=== PATIENT | female | born 1950 | race Caucasian/White ===

== ENCOUNTER 2020-05-20 13:57 | Outpatient (RCR) | payer MEDICARE, OTHER, SELFPAY | END 2020-06-26 13:04 | disposition home or self-care (01) | LOC: HO.WCC 13:57 | PROVIDERS: PCP Internal Medicine; Visit Provider Surgery | DX: E11.621 Type 2 diabetes mellitus with foot ulcer (principal); E11.51 Type 2 diabetes mellitus with diabetic peripheral angiopathy without gangrene; L97.512 Non-pressure chronic ulcer of other part of right foot with fat layer exposed; L03.115 Cellulitis of right lower limb; L98.0 Pyogenic granuloma; I10 Essential (primary) hypertension; Z79.4 Long term (current) use of insulin; Z89.421 Acquired absence of other right toe(s); Z79.899 Other long term (current) drug therapy; Z79.2 Long term (current) use of antibiotics | CPT/HCPCS: 11042; 17250; 99212 ==

== ENCOUNTER 2020-07-04 15:29 | Emergency (ER) | payer MEDICARE, OTHER, SELFPAY ==
[2020-07-04 16:37] VITALS: BP 171/61; PULSE 86; RESP 20; TEMP 37.1; O2SAT 98; BMI 35.3
--- NOTE | 2020-07-04 17:08 | CT_ITS ---
EXAMINATION: CT ABDOMEN AND PELVIS WITHOUT CONTRAST CLINICAL INFORMATION: Lower abdominal pain COMPARISON: None TECHNIQUE: Multidetector volumetric imaging was performed from the superior aspect of the liver through the pubic symphysis. Sagittal and coronal reformatted images were obtained on the technologist's workstation. This CT examination was performed using dose optimization techniques as appropriate, variously including the following: *Automated exposure control *Adjustment of mA and/or kV according to patient size (this includes techniques or standardized protocols for targeted exams where dose is matched to indication/reason for exam; i.e. extremities or head) *Use of iterative reconstruction technique DLP: 777 mGy-cm FINDINGS: LUNG BASES: The visualized lung bases are unremarkable. LIVER, GALLBLADDER, AND BILIARY TREE: Vague hypodense lesion at the dome right lobe of liver measuring 6 mm axial image 59 series 5. In a patient without history of malignancy no further imaging would be suggested. No intrahepatic bile duct dilatation. The right lobe of liver measures 20 cm superior inferior. Status post cholecystectomy. No bile duct dilatation. CBD measures 5 mm. PANCREAS: Unremarkable. SPLEEN: Unremarkable. ADRENAL GLANDS: Unremarkable. KIDNEYS AND URETERS: The kidneys are normal in size, shape, and attenuation. No hydronephrosis, hydroureter, or calculi seen. No perinephric stranding. BLADDER: Unremarkable. GASTROINTESTINAL TRACT: There are innumerable diverticula of the sigmoid colon. There are scattered diverticula in the remainder the colon but most are present in the left colon. Small area of pericolonic edema at the mid sigmoid colon consistent with a mild diverticulitis, coronal image 67 series 5. No perforation or abscess. No bowel obstruction. There is a moderate volume of stool in the colon. The appendix is normal . The small bowel loops are unremarkable. The stomach is normal. There is small hiatal hernia. ABDOMINAL WALL: Small fat-containing right-sided hernia. Defect in the wall measures 1.7 cm. The herniated fat pocket measures 3.8 x 0.8 x 3 cm. This lies at the cephalad margin of the mid abdominal wall surgical incision which is otherwise intact. There is edema in the subcutaneous tissues around the surgical incision but there is no abscess or focal fluid collection. LYMPH NODES: Normal. VASCULAR: Scattered vascular wall calcifications in the abdomen and pelvis. There is no aneurysm of aorta. PELVIC VISCERA: Status post hysterectomy. No pelvic mass or fluid collection. OSSEOUS STRUCTURES: Multilevel degenerative spondylosis of the spine. CT/CT abdomen pelvis wo con IMPRESSION: 1. Status post hysterectomy. 2. Status post Cholecystectomy.. 3. Midline abdominal incision has a focal fat hernia at the cephalad margin of the incision. The incision is otherwise intact. There is edema around the incision the subcutaneous tissue but no abscess or fluid collection. 4. There is marked diverticulosis of the colon. Small focus of diverticulitis of the sigmoid colon.
--- NOTE | 2020-07-04 17:21 | ED.ABDPAIN ---
HPI - Abdominal Pain General Chief Complaint: Abdominal Pain Stated Complaint: abdominal pain Time Seen by Provider: 07/04/20 17:08 Source: patient Mode of arrival: ambulatory Limitations: no limitations History of Present Illness HPI narrative: 70-year-old female walked in today for abdominal pain, patient described the pain as crampy lower abdominal pain started since last night, pain was severe when it started rated at 10/10 now with about 510, pain is intermittent, localized to the suprapubic area with no radiation, no aggravating factors or alleviating factors, was associated with difficulty urination but declined nausea, vomiting, or fever. Related Data Home Medications Medication Instructions Recorded Confirmed Prilosec 07/04/20 Synthroid 07/04/20 07/04/20 lorazepam 07/04/20 metformin 07/04/20 Previous Rx's Medication Instructions Recorded ciprofloxacin HCl [Cipro] 500 mg PO Q12H #14 tab 07/04/20 metronidazole [Flagyl] 500 mg PO Q12H #14 tab 07/04/20 Allergies Allergy/AdvReac Type Severity Reaction Status Date / Time cefaclor [From CECLOR] Allergy Unknown UNKNOWN Unverified 05/01/20 15:14 erythromycin base Allergy Unknown UNKNOWN Unverified 05/01/20 15:14 [ERYTHROMYCIN BASE] sulfamethoxazole Allergy Unknown UNKNOWN Unverified 05/01/20 15:14 [From BACTRIM] trimethoprim [From BACTRIM] Allergy Unknown UNKNOWN Unverified 05/01/20 15:14 Review of Systems Review of Systems All other systems are reviewed and are negative Constitutional: Reports as per HPI and Reports no additional constitutional complaints Eyes: Reports as per HPI and Reports no additional eye complaints Reports system reviewed and no additional complaints, except as documented Cardiovascular: Reports as per HPI and Reports no additional cardiovascular complaints Respiratory: Reports as per HPI and Reports no additional respiratory complaints Gastrointestinal: Reports as per HPI and Reports no additional gastrointestinal complaints Genitourinary: Reports no additional female genitourinary complaints Musculoskeletal: Reports no additional musculoskeletal complaints Skin/Breast: Reports system reviewed and no additional complaints, except as docu Psychiatric: Reports no additional psychiatric complaints Endocrine: Reports no additional endocrine complaints Hematologic/Lymphatic: Reports no additional hematologic/lymphatic complaints Allergic/Immunologic: Reports no additional allergic/immunologic complaints Reports system reviewed and no additional complaints, except as documented and Reports Abnormal speech present Physical Exam Vital Signs: Vital Signs: Last Vital Signs Temp 98.7 F 07/04/20 16:37 Pulse 86 07/04/20 16:37 Resp 20 07/04/20 16:37 BP 171/61 H 07/04/20 16:37 Pulse Ox 98 07/04/20 16:37 Body Mass Index 35.3 Vital signs have been reviewed as normal and appeared to be correct. Blood pressure in the high range. Heart rate normal. Respiration rate normal. Temperature normal. Oxygen saturation normal. Appearance: Alert. Oriented X3. No acute distress. Head: Normal external exam. Normocephalic. Atraumatic. No Parra signs noted. No raccoon eyes noted Eyes: PERRLA. EOMI. Conjunctiva and sclera normal. Eyelids normal. ENT: EAC normal. TM's Normal. Pharynx normal. Uvula midline. Moist mucous membranes. No trismus noted. No drooling noted. No muffled voice noted. Neck: Normal inspection. Neck supple. FROM. No adenopathy. Thyroid Normal. No meningeal signs. No neck mass noted. CVS: Normal heart rate and rhythm. Heart sound normal. No murmurs noted. Pulses normal throughout. Respiratory: No respiratory distress. Painless inspiration. Breath sounds normal. No wheezes/rales/rhonchi noted. Chest nontender. No accessory muscle usage noted or decreased air movement noted. Abdomen: Soft, mild tenderness in the suprapubic area but no rebound no guarding.. Bowel sounds normal in all 4 quadrants. No distention noted. No organomegaly noted. No visible injury noted. Back: No CVA tenderness. Full range of motion noted. Skin: Skin warm and dry. Normal skin color. Normal skin turgor. No rashes/lesions/lacerations noted. Extremities: No lower extremity edema. Extremities exhibit normal range of motion. Extremities nontender. Neuro: Oriented X 3. No motor deficit. No sensory deficit. Reflexes normal. MDM - Abdominal Pain MDM Narrative Medical decision making narrative: Assessment and plan. 70-year-old female came in with crampy suprapubic abdominal pain since last night pain is intermittent, patient now has no pain. CT of the abdomen pelvis is unremarkable except for maybe of focal diverticulitis. Patient has no white count, no fever, abdominal exam is soft. Will treat with Cipro/Flagyl p.o. as an outpatient, patient also was instructed to modify diet and stay away from seeds/not contained food. Mild hypernatremia. Lab Data Attestation: I reviewed the patient's lab results. Result diagrams: 07/04/20 17:36 07/04/20 17:36 Labs: Lab Results 07/04/20 07/04/20 07/04/20 Range/Units 17:36 17:36 17:36 WBC 8.6 (4.8-10.8) X10*3/uL RBC 4.58 (4.20-5.50) X10*6/uL Hgb 12.2 (12.0-16.0) g/dl Hct 36.9 L (37-47) % MCV 80.6 (80-98) fL MCH 26.6 L (27.0-33.0) pg MCHC 33.1 (31.0-35.0) g/dl RDW 13.4 (11.0-16.0) % Plt Count 261 (160-400) X10*3/uL MPV 9.1 L (9.4-12.3) fL Immature Gran % (Auto) 0.3 (0.0-0.4) % Neut % (Auto) 68.8 (45-73) % Lymph % (Auto) 20.8 (20-40) % [place] % (Auto) 7.4 (2-11) % Eos % (Auto) 2.2 (0-4) % Baso % (Auto) 0.5 (0-2) % Lymph # (Auto) 1.8 (1.2-4.9) X10*3/uL [place] # (Auto) 0.6 (0.1-1.2) X10*3/uL Eos # (Auto) 0.2 (0.0-0.4) X10*3/uL Baso # (Auto) 0.0 (0.0-0.2) X10*3/uL Abs Immat Gran (auto) 0.03 (0.00-0.03) X10*3/uL Absolute Neuts (auto) 5.9 (2.0-8.3) X10*3/uL Absolute Nucleated RBC 0.000 (0.0-0.012) X10*3/uL Nucleated RBC % (auto) 0.0 (0.0-0.2) /100WBC Sodium 130 L (135-145) mmol/L Potassium 3.8 (3.3-5.1) mmol/l Chloride 92 L (96-108) mmol/L Carbon Dioxide 28 (22-29) mmol/L Anion Gap 14 (12-20) BUN 7 L (9-16) mg/dL Creatinine 0.71 (0.5-1.4) mg/dL Estim Creat Clear Calc 79.3 Estimated GFR > 60 Random Glucose 231 H (60-115) mg/dL Calcium 9.6 (8.4-10.2) mg/dL Total Bilirubin 0.7 (0.0-1.0) mg/dL Direct Bilirubin 0.2 (0.0-0.5) mg/dL AST 18 (5-31) U/L ALT 20 (0-31) U/L Alkaline Phosphatase 82 (39-117) U/L Total Protein 7.0 (6.5-8.0) g/dL Albumin 4.6 (3.5-5.0) g/dL Lipase 21 (8-78) U/L Urine Color YELLOW Urine Appearance CLEAR Urine pH 6.5 (5.0-8.0) Ur Specific [place] 1.010 (1.005-1.025) Urine Protein NEG (NEG-TRACE) MG/DL Urine Glucose (UA) 100 H (NEG) MG/DL Urine Ketones NEG (NEG) MG/DL Urine Blood NEG (NEG) Urine Nitrite NEG (NEG) Ur Leukocyte Esterase NEG (NEG) Imaging Data CT scan - abdomen: Radiologist's impression: 1. Status post hysterectomy. 2. Status post Cholecystectomy.. 3. Midline abdominal incision has a focal fat hernia at the cephalad margin of the incision. The incision is otherwise intact. There is edema around the incision the subcutaneous tissue but no abscess or fluid collection. 4. There is marked diverticulosis of the colon. Small focus of diverticulitis of the sigmoid colon. Discharge Plan Discharge Clinical Impression: Diverticulitis Abdominal pain Qualifiers: Abdominal location: left lower quadrant Qualified Code(s): R10.32 - Left lower quadrant pain Patient Disposition: Home, Self-Care Instructions: Diverticulitis (ED), Abdominal Pain (ED) Additional Instructions: Talk to your PCP to arrange for your routine colonoscopy. Prescriptions: New ciprofloxacin HCl [Cipro] 500 mg tablet 500 mg PO Q12H Qty: 14 RF: 0 metronidazole [Flagyl] 500 mg tablet 500 mg PO Q12H Qty: 14 RF: 0 No Action Prilosec RF: 0 Synthroid RF: 0 lorazepam RF: 0 metformin RF: 0 Referrals: Niko Miles MD [Primary Care Provider] - 2 days [facility] Past Medical History Medical History Anxiety Diabetes mellitus, type 2 Hypertension Hypothyroidism Social History Social History Alcohol intake: former Smoked in Last 30 Days: No Use of substances other than those prescribed or required for medical reasons: No Advance Directives: No Advance Directives Information Provided: Yes
[2020-07-04 17:41] LABS: MANUAL DIFF FLAG NO
[2020-07-04] MEDS: Ketorolac Tromethamine 15 MG/ML VIAL IVPUSH (17:43)
[2020-07-04 17:44] LABS: Appearance Urine CLEAR; Color Urine YELLOW; Glucose Urine UA 100 MG/DL (NEG); Leukocyte Esterase Urine NEG (NEG); Nitrite Urine NEG (NEG); PH 6.5 (5.0-8.0); Urine Blood NEG (NEG); Urine Ketones NEG (NEG); Urine Protein NEG (NEG-TRACE)
[2020-07-04] MEDS: 0.9 % Sodium Chloride 500 ML 1000 ML IV (17:45)
[2020-07-04 17:47] LABS: Basophils Percent Auto 0.5 % (0-2); Eosinophils Absolute Auto 0.2 X10*3/uL (0.0-0.4); Eosinophils Percent Auto 2.2 % (0-4); Hematocrit 36.9 % (37-47); Hemoglobin 12.2 g/dl (12.0-16.0); Imm Gran Abs Auto 0.03 X10*3/uL (0.00-0.03); Imm Gran Pct Auto 0.3 % (0.0-0.4); Lymphocytes Absolute Auto 1.8 X10*3/uL (1.2-4.9); Lymphocytes Percent Auto 20.8 % (20-40); Mean Corpuscular HGB Conc 33.1 g/dl (31.0-35.0); Mean Corpuscular Hemoglobin 26.6 pg (27.0-33.0); Mean Corpuscular Volume 80.6 fL (80-98); Mean Platelet Volume 9.1 fL (9.4-12.3); Monocytes Absolute Auto 0.6 X10*3/uL (0.1-1.2); Monocytes Percent Auto 7.4 % (2-11); Neutrophils Absolute Auto 5.9 X10*3/uL (2.0-8.3); Neutrophils Percent Auto 68.8 % (45-73); Platelet Count 261 X10*3/uL (160-400); Red Blood Count 4.58 X10*6/uL (4.20-5.50); Red Cell Distribution Width 13.4 % (11.0-16.0); White Blood Count 8.6 X10*3/uL (4.8-10.8)
[2020-07-04 18:14] LABS: Alanine Aminotransferase 20 U/L (0-31); Albumin Level 4.6 g/dL (3.5-5.0); Alkaline Phosphatase 82 U/L (39-117); Anion Gap 14 (12-20); Aspartate Amino Transferase 18 U/L (5-31); Bilirubin Direct 0.2 mg/dL (0.0-0.5); Bilirubin Total 0.7 mg/dL (0.0-1.0); Blood Urea Nitrogen 7 mg/dL (9-16); Calcium 9.6 mg/dL (8.4-10.2); Carbon Dioxide 28 mmol/L (22-29); Chloride 92 mmol/L (96-108); Creatinine Clr Calc Pharmacy 79.3; Estimated Glomerular Filt Rate > 60; Glucose Random 231 mg/dL (60-115); Lipase 21 U/L (8-78); Potassium 3.8 mmol/l (3.3-5.1); Sodium 130 mmol/L (135-145)
== END 2020-07-04 18:51 | disposition home or self-care (01) ==
PROVIDERS: Emergency Provider Emergency Medicine; PCP Internal Medicine
DX: K57.32 Diverticulitis of large intestine without perforation or abscess without bleeding (principal); R10.32 Left lower quadrant pain; Z79.899 Other long term (current) drug therapy
CPT/HCPCS: 36415; 74176; 80048; 80076; 81003; 83690; 85025; 96374; 96375; 99284; J1885

== ENCOUNTER 2020-08-29 14:46 | Outpatient (RCR) | payer MEDICARE, OTHER, SELFPAY | END 2020-09-24 13:25 | disposition home or self-care (01) | LOC: HO.WCC 14:46 | PROVIDERS: Visit Provider Surgery | DX: E11.621 Type 2 diabetes mellitus with foot ulcer (principal); L97.512 Non-pressure chronic ulcer of other part of right foot with fat layer exposed; C55 Malignant neoplasm of uterus, part unspecified; M10.9 Gout, unspecified; I87.2 Venous insufficiency (chronic) (peripheral); I10 Essential (primary) hypertension; K21.9 Gastro-esophageal reflux disease without esophagitis; J45.909 Unspecified asthma, uncomplicated; K81.9 Cholecystitis, unspecified; Z90.711 Acquired absence of uterus with remaining cervical stump; Z89.421 Acquired absence of other right toe(s) | CPT/HCPCS: 11042 ==

== ENCOUNTER 2020-11-08 22:39 | Emergency (ER) | payer MEDICARE, OTHER, SELFPAY ==
--- NOTE | ~2020-11-08 | XR_ITS ---
EXAMINATION: RIGHT FOOT 3 VIEWS CLINICAL INFORMATION: Concern for third digit osteomyelitis. COMPARISON: None. TECHNIQUE: AP, lateral, oblique views of the right foot were obtained. FINDINGS: There is absence of the first distal phalanx as well as the distal aspect of the proximal first phalanx. A threaded screw traversing the distal first metatarsal is intact. There is also absence of the distal phalanx. There are no acute fractures. There is soft tissue swelling to the distal dorsum of the foot. There is diffuse soft tissue swelling about the distal third digit. There are a few punctate flecks of density dorsal to the distal third distal phalanx. This is doubtful to represent bony destruction as it is distant from the cortex. There are no areas of bone destruction suspicious for osteomyelitis. There is no ankle joint effusion. There is a small plantar surface calcaneal spur. XR/XR foot RT min 3V IMPRESSION: Postsurgical changes as stated above. Soft tissue swelling to the distal dorsum of the foot. Diffuse soft tissue swelling to the distal third digit. There are a few soft tissue punctate densities to the distal third digit. It is doubtful that this is medical center representative of acute osseous infection. However, please note that plain films are not necessarily sensitive for osteomyelitis. Consider correlation with MRI if deemed clinically appropriate.
[2020-11-08 22:48] VITALS: BP 137/68; PULSE 80; RESP 16; TEMP 36.7; O2SAT 97; BMI 34.0
--- NOTE | 2020-11-09 00:36 | ED.GENADULT ---
HPI - General Adult General Chief complaint: General Medical Stated complaint: Ankle swelling Time Seen by Provider: 11/08/20 23:38 Source: patient Mode of arrival: ambulatory Limitations: no limitations History of Present Illness HPI narrative: Patient comes emergency room complaining of right foot swelling and redness. Patient states it has been 24 hours since she 1st noticed the swelling and redness on her foot. Patient states that she has limited sensation due to diabetes. Patient denies fever chills, denies injury. 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 Patient reports an old ulcer in the 3rd toe, however she has noticed that she has new discomfort on that toe Related Data Home Medications Medication Instructions Recorded Confirmed Prilosec 07/04/20 Synthroid 07/04/20 07/04/20 lorazepam 07/04/20 metformin 07/04/20 Previous Rx's Medication Instructions Recorded ciprofloxacin HCl [Cipro] 500 mg PO Q12H #14 tab 07/04/20 metronidazole [Flagyl] 500 mg PO Q12H #14 tab 07/04/20 clindamycin HCl 300 mg PO TID 7 Days #21 cap 11/09/20 Allergies Allergy/AdvReac Type Severity Reaction Status Date / Time cefaclor [From CECLOR] Allergy Unknown UNKNOWN Verified 11/08/20 22:47 erythromycin base Allergy Unknown UNKNOWN Verified 11/08/20 22:47 [ERYTHROMYCIN BASE] sulfamethoxazole Allergy Unknown UNKNOWN Verified 11/08/20 22:47 [From BACTRIM] trimethoprim [From BACTRIM] Allergy Unknown UNKNOWN Verified 11/08/20 22:47 Review of Systems Review of Systems: Constitutional : No Weight loss, No Fever, No Chills, No Night Sweats, No Fatigue, No Malaise ENT/Mouth : No Hearing loss, No Ear Pain, No Nasal Congestion, No Sinus Pain, No Hoarseness, No sore throat, No Rhinorrhea, No Swallowing Difficulty Eyes: No Eye Pain, No Swelling, No Redness, No Foreign Body, No Discharge, No Vision Changes Cardiovascular : No Chest Pain, No SOB, No Dyspnea on Exertion, No Orthopnea, No Edema, No Palpitations Respiratory : No Cough, No Sputum, No Wheezing, No Smoke Exposure, No Dyspnea Gastrointestinal : No Nausea, No Vomiting, No Diarrhea, No Constipation, No abdominal Pain, No Hematochezia, No Melena Genitourinary : no irregular bleeding, No Dysuria, No Urinary Frequency, No Hematuria, No Urinary Incontinence, No Urgency, No Flank Pain, No Urinary Flow Changes, No Hesitancy Musculoskeletal : No joint pain, No Myalgias, No Joint Swelling Skin : Complaining of an old ulcer in the 3rd toe, burning sensation, swelling of the right foot and erythema. Neuro : No Weakness, No Numbness, No Paresthesias, No Loss of Consciousness, No Dizziness, No Headache Psych : No Anxiety/Panic, No Depression, No SI/HI/AH/VH, No Social Issues, Heme/Lymph: No Bruising, No Bleeding,No Lymphadenopathy Endocrine : No Polyuria, No Polydipsia, No Temperature Intolerance PMF Past Medical History Medical History Anxiety Diabetes mellitus, type 2 Hypertension Hypothyroidism Social History Social History Alcohol intake: former Advance Directives: No Physical Exam Vital Signs: Vital Signs: Last Vital Signs Temp 98.2 F 11/09/20 02:00 Pulse 81 11/09/20 02:00 Resp 18 11/09/20 02:00 BP 141/60 H 11/09/20 02:00 Pulse Ox 98 11/09/20 02:00 Body Mass Index 34.0 Appearance: Alert. Oriented X3. No acute distress. Eyes: Pupils equal, round and reactive to light. ENT: Pharynx normal. Neck: Normal inspection. Neck supple. No lymph nodes noted. No crepitus CVS: Normal heart rate and rhythm. Pulses normal. Normal S1 and S2 Respiratory: No respiratory distress. Breath sounds normal. No Wheezing. No rales Abdomen: Soft and nontender. No rigidity. No distention. good BS x4 Skin: Skin warm and dry. Old healing ulcer on the plantar aspect of the 3rd toe on the right foot, right toe looks mildly swollen and erythematous expanding to the dorsum of the right foot, +3 pitting edema in the distal aspect of the right foot, increased warmth to the distal aspect of the foot then compared to the proximal aspect of the right foot and the left foot Extremities: No lower extremity edema. No lower extremity edema. No Lacerations. No Rash Neuro: Oriented X 3. No motor deficit. No sensory deficit. Moving all extermities. No slurred speech. Course Course Course Narrative: I discussed the labs and imaging with the patient, at this time, osteomyelitis and sepsis are not suspected. The infection seems to be mostly superficial, no suspicion for gas gangrene. Patient's lactic acid is 2.1. Patient refused to get an IV and IV fluids. Due to patient's multiple allergies, we will go ahead and start clindamycin. 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 First dose of clindamycin given. I discussed with the patient that she can speak to her primary care physician regarding a referral to an six color press operator to get a skin scratch test, to rule out allergies to antibiotics. Patient states that she does not remember the side effects of some of this antibiotics, they might be just side effects rather than actual allergies. At this time, clindamycin will be started, patient has history of MRSA. Medical Decision Making Lab Data Result diagrams: 11/09/20 01:18 11/09/20 01:18 Labs: Lab Results 11/09/20 11/09/20 11/09/20 Range/Units 01:18 01:18 01:18 WBC 6.7 (4.8-10.8) X10*3/uL RBC 4.37 (4.20-5.50) X10*6/uL Hgb 11.9 L (12.0-16.0) g/dl Hct 35.5 L (37-47) % MCV 81.2 (80-98) fL MCH 27.2 (27.0-33.0) pg MCHC 33.5 (31.0-35.0) g/dl RDW 13.2 (11.0-16.0) % Plt Count 168 D (160-400) X10*3/uL MPV 10.4 (9.4-12.3) fL Immature Gran % (Auto) 0.4 (0.0-0.4) % Neut % (Auto) 57.0 (45-73) % Lymph % (Auto) 32.4 (20-40) % [place] % (Auto) 6.8 (2-11) % Eos % (Auto) 2.8 (0-4) % Baso % (Auto) 0.6 (0-2) % Lymph # (Auto) 2.2 (1.2-4.9) X10*3/uL [place] # (Auto) 0.5 (0.1-1.2) X10*3/uL Eos # (Auto) 0.2 (0.0-0.4) X10*3/uL Baso # (Auto) 0.0 (0.0-0.2) X10*3/uL Abs Immat Gran (auto) 0.03 (0.00-0.03) X10*3/uL Absolute Neuts (auto) 3.8 (2.0-8.3) X10*3/uL Absolute Nucleated RBC 0.000 (0.0-0.012) X10*3/uL Nucleated RBC % (auto) 0.0 (0.0-0.2) /100WBC Smear Tech's Comments VERIFIED Sodium 133 L (135-145) mmol/L Potassium 4.5 (3.3-5.1) mmol/L Chloride 98 (96-108) mmol/L Carbon Dioxide 19 L (22-29) mmol/L Anion Gap 21 H (12-20) BUN 10 (9-16) mg/dL Creatinine 0.77 (0.5-1.4) mg/dL Estim Creat Clear Calc 71.7 Estimated GFR > 60 Random Glucose 212 H (60-115) mg/dL Lactic Acid 2.1 H* (0.5-2.0) mmol/L Calcium 9.5 (8.4-10.2) mg/dL Imaging Data Foot x-ray: Radiologist's impression: There is absence of the first distal phalanx as well as the distal aspect of the proximal first phalanx. A threaded screw traversing the distal first metatarsal is intact. There is also absence of the distal phalanx. There are no acute fractures. There is soft tissue swelling to the distal dorsum of the foot. There is diffuse soft tissue swelling about the distal third digit. There are a few punctate flecks of density dorsal to the distal third distal phalanx. This is doubtful to represent bony destruction as it is distant from the cortex. There are no areas of bone destruction suspicious for osteomyelitis. There is no ankle joint effusion. There is a small plantar surface calcaneal spur. XR/XR foot RT min 3V IMPRESSION: Postsurgical changes as stated above. Soft tissue swelling to the distal dorsum of the foot. Diffuse soft tissue swelling to the distal third digit. There are a few soft tissue punctate densities to the distal third digit. It is doubtful that this is outbound call center representative of acute osseous infection. However, please note that plain films are not necessarily sensitive for osteomyelitis. Consider correlation with MRI if deemed clinically appropriate. Discharge Plan Discharge Clinical Impression: Cellulitis Qualifiers: Site of cellulitis: extremity Site of cellulitis of extremity: lower extremity Laterality: right Qualified Code(s): L03.115 - Cellulitis of right lower limb Patient Disposition: Home, Self-Care Instructions: Cellulitis (ED) Additional Instructions: Please follow-up with your primary care physician tomorrow. If you have any worsening or new symptoms, please return to the emergency room or call 911 Prescriptions: New clindamycin HCl 300 mg capsule 300 mg PO TID 7 Days Qty: 21 RF: 0 No Action Prilosec RF: 0 Synthroid RF: 0 lorazepam RF: 0 metformin RF: 0 ciprofloxacin HCl [Cipro] 500 mg tablet 500 mg PO Q12H Qty: 14 RF: 0 metronidazole [Flagyl] 500 mg tablet 500 mg PO Q12H Qty: 14 RF: 0
[2020-11-09 01:47] LABS: Imm Gran Abs Auto 0.03 X10*3/uL (0.00-0.03); Imm Gran Pct Auto 0.4 % (0.0-0.4); MANUAL DIFF FLAG SCAN; Mean Corpuscular HGB Conc 33.5 g/dl (31.0-35.0); PLT CLUMP 1; Red Cell Distribution Width 13.2 % (11.0-16.0); SCAN SMEAR FLAG 1
[2020-11-09 01:49] LABS: Basophils Percent Auto 0.6 % (0-2); Eosinophils Absolute Auto 0.2 X10*3/uL (0.0-0.4); Eosinophils Percent Auto 2.8 % (0-4); Hematocrit 35.5 % (37-47); Hemoglobin 11.9 g/dl (12.0-16.0); Lymphocytes Absolute Auto 2.2 X10*3/uL (1.2-4.9); Lymphocytes Percent Auto 32.4 % (20-40); Mean Corpuscular Hemoglobin 27.2 pg (27.0-33.0); Mean Corpuscular Volume 81.2 fL (80-98); Mean Platelet Volume 10.4 fL (9.4-12.3); Monocytes Absolute Auto 0.5 X10*3/uL (0.1-1.2); Monocytes Percent Auto 6.8 % (2-11); Neutrophils Absolute Auto 3.8 X10*3/uL (2.0-8.3); Platelet Count 168 X10*3/uL (160-400); Red Blood Count 4.37 X10*6/uL (4.20-5.50); White Blood Count 6.7 X10*3/uL (4.8-10.8)
[2020-11-09 01:51] LABS: Anion Gap 21 (12-20); Blood Urea Nitrogen 10 mg/dL (9-16); Calcium 9.5 mg/dL (8.4-10.2); Carbon Dioxide 19 mmol/L (22-29); Chloride 98 mmol/L (96-108); Creatinine Clr Calc Pharmacy 71.7; Estimated Glomerular Filt Rate > 60; Glucose Random 212 mg/dL (60-115); Lactic Acid 2.1 mmol/L (0.5-2.0); Potassium 4.5 mmol/L (3.3-5.1); Sodium 133 mmol/L (135-145)
[2020-11-09 02:00] VITALS: BP 141/60; PULSE 81; RESP 18; TEMP 36.8; O2SAT 98
--- NOTE | 2020-11-09 02:22 | PC.NURSE ---
This RN at bedside to obtain IV access. Pt refusing at this time, states I just want to go home. Pt reports multiple recent stressors including family deaths and surgical procedures. Pt states I just can't stand it anymore, I need to leave. Pt requesting to speak to , aware. MD at bedside discussing plan of care.
[2020-11-09 02:32] LABS: SLIDE REVIEW VERIFIED
[2020-11-09 03:26] LABS: Reflex Lactate? Lactic Acid Added
== END 2020-11-09 03:10 | disposition home or self-care (01) ==
PROVIDERS: Emergency Provider Emergency Medicine; PCP Internal Medicine
DX: L03.115 Cellulitis of right lower limb (principal); E11.9 Type 2 diabetes mellitus without complications; I10 Essential (primary) hypertension; F41.9 Anxiety disorder, unspecified; Z86.14 Personal history of Methicillin resistant Staphylococcus aureus infection; Z89.411 Acquired absence of right great toe; Z79.84 Long term (current) use of oral hypoglycemic drugs
CPT/HCPCS: 36415; 73630; 80048; 83605; 85025; 87040; 99283; 99284

== ENCOUNTER 2022-04-19 16:54 | Emergency (ER) | payer MEDICARE, OTHER, SELFPAY ==
[2022-04-19 17:05] VITALS: BP 136/79; PULSE 77; RESP 18; TEMP 36.7; O2SAT 99; BMI 32.5
[2022-04-19 17:16] LABS: MANUAL DIFF FLAG NO
[2022-04-19 17:21] LABS: Basophils Absolute Auto 0.1 X10*3/uL (0.0-0.2); Basophils Percent Auto 0.8 % (0-2); Eosinophils Absolute Auto 0.2 X10*3/uL (0.0-0.4); Eosinophils Percent Auto 2.5 % (0-4); Hematocrit 35.7 % (37.0-47.0); Hemoglobin 11.6 g/dl (12.0-16.0); Imm Gran Abs Auto 0.06 X10*3/uL (0.00-0.03); Imm Gran Pct Auto 0.8 % (0.0-0.4); Lymphocytes Absolute Auto 2.1 X10*3/uL (1.2-4.9); Lymphocytes Percent Auto 26.7 % (20-40); Mean Corpuscular HGB Conc 32.5 g/dl (31.0-35.0); Mean Corpuscular Hemoglobin 26.1 pg (27.0-33.0); Mean Corpuscular Volume 80.2 fL (80.0-98.0); Mean Platelet Volume 8.8 fL (9.4-12.3); Monocytes Absolute Auto 0.6 X10*3/uL (0.1-1.2); Neutrophils Absolute Auto 4.9 x10*3/uL (2.0-8.3); Neutrophils Percent Auto 62.2 % (45-73); Platelet Count 262 X10*3/uL (160-400); Red Blood Count 4.45 X10*6/uL (4.20-5.50); Red Cell Distribution Width 13.8 % (11.0-16.0); White Blood Count 7.9 X10*3/uL (4.8-10.8)
[2022-04-19 17:35] LABS: Alanine Aminotransferase 13 U/L (0-31); Albumin Level 4.3 g/dL (3.5-5.0); Alkaline Phosphatase 65 U/L (39-117); Anion Gap 17 (12-20); Aspartate Amino Transferase 15 U/L (5-31); Bilirubin Total 0.2 mg/dL (0.0-1.0); Blood Urea Nitrogen 7 mg/dL (9-16); Calcium 9.4 mg/dL (8.4-10.2); Carbon Dioxide 23 mmol/L (22-29); Chloride 97 mmol/L (96-108); Creatinine Clr Calc Pharmacy 81.9; Estimated Glomerular Filt Rate > 60; Glucose Random 126 mg/dL (60-115); Potassium 3.9 mmol/L (3.3-5.1); Sodium 133 mmol/L (135-145); Total Protein 7.1 g/dL (6.5-8.0)
[2022-04-19 17:42] LABS: B Type Natriuretic Peptide 33 pg/mL (<100)
== END 2022-04-19 22:53 | disposition left against medical advice (07) ==
PROVIDERS: Emergency Provider Emergency Medicine; PCP Internal Medicine
DX: R22.43 Localized swelling, mass and lump, lower limb, bilateral (principal); E11.9 Type 2 diabetes mellitus without complications; I10 Essential (primary) hypertension
CPT/HCPCS: 36415; 80053; 83880; 85025; 99281; 99283